=== PATIENT | female | born 1950 | race Caucasian/White ===

== ENCOUNTER → 2020-01-28 | Outpatient (CLI) | payer MEDICARE, OTHER ==
[~2020-01-28] MED LIST: LOPRESSOR25 MG PO; PLAVIX75 MG PO; PRINIVIL20 MG PO; ZOCOR40 MG PO
--- NOTE | 2020-01-28 12:33 | Diagnostic Imaging Report ---
EXAM: ABDOMEN-1VIEW (KUB) DATE: 01/28/2020 10:55 AM INDICATION: Urinary tract infection COMPARISON: None FINDINGS: Bowel gas pattern is nonobstructive. Bowel gas partially obscures renal shadows limiting evaluation. No radiographically evident renal calculi are appreciated. No abnormal intra-abdominal calcification is identified. There are degenerative changes of the lumbosacral spine. No acute osseous abnormalities identified. IMPRESSION: No acute radiographic abnormality identified within the abdomen. Signed by: Dr. Óscar Clark MD on 01/28/2020 12:30 PM
--- NOTE | 2020-01-28 12:36 | Diagnostic Imaging Report ---
EXAM: US RENAL RETROPERITONEAL COMP DATE: 01/28/2020 11:08 AM INDICATION: UTI COMPARISON: None FINDINGS: The right kidney is normal in size measuring 10.7 x 4.3 x 4.6 cm with cortical thickness of 1.7 cm. Cortical echogenicity is within normal limits. A suspected extrarenal pelvis is noted on the right. There is no evidence for true intrarenal hydronephrosis. No solid renal mass or shadowing calculi is appreciated. The left kidney is normal in size measuring 10.2 x 4.9 x 4.1 cm with cortical thickness of 2.0 cm. Cortical echogenicity is within normal limits. There is no evidence for solid renal mass, hydronephrosis, or shadowing calculi. The urinary bladder demonstrates no significant abnormalities. Bilateral ureteral jets are visualized. Prevoid volume is 216 cc. IMPRESSION: Suspected extrarenal pelvis noted on the right. Otherwise, unremarkable sonographic appearance of the kidneys. Signed by: Dr. Óscar lCark MD on 01/28/2020 12:33 PM
== END ==
LOC: US 10:40
PROVIDERS: ATTEND Urology
DX: N39.0 Urinary tract infection, site not specified (principal)
CPT/HCPCS: 74018; 76770

== ENCOUNTER 2021-06-03 13:20 | Emergency (ER) | payer MEDICARE, OTHER ==
[~2021-06-03] VITALS: Ht 170.2 cm; Wt 61.2 kg
[2021-06-03] MEDS ORDERED: KETOROLAC TROMETHAMINE 30 MG/ML VIAL IV STA (13:40)
[2021-06-03 14:24] LABS: BASOPHILS # (AUTO) 0.1 (0.0-0.1); BASOPHILS % 0.3 % (0.0-1.0); EOSINOPHILS # (AUTO) 0.1 (0.0-0.4); EOSINOPHILS % 0.5 % (0.0-6.0); HEMATOCRIT 44.8 % (34.2-44.1); HEMOGLOBIN 14.5 g/dL (12.0-16.0); LYMPHOCYTES # (AUTO) 7.5 (1.0-3.2); LYMPHOCYTES % 34.4 % (18.0-39.1); MEAN CORPUSCULAR HEMOGLOBIN 31.5 pg (28-32); MEAN CORPUSCULAR HGB CONC 32.4 g/dL (31-35); MEAN CORPUSCULAR VOLUME 97.2 fL (81-99); MONOCYTES # (AUTO) 1.1 (0.2-0.8); NEUTROPHILS % 59.2 % (38.7-80.0); PLATELET COUNT 227 x10e3/uL (140-360); RED BLOOD COUNT 4.61 x10e6/uL (3.6-5.1); RED CELL DISTRIBUTION WIDTH 13.2 % (11.7-14.4)
[2021-06-03 14:27] LABS: CLARITY,URINE CLOUDY (CLEAR); COLOR,URINE YELLOW (YELLOW); KETONES,URINE NEGATIVE (NEGATIVE); LEUKOCYTE ESTERASE ,URINE LARGE (NEGATIVE); NITRITE,URINE POSITIVE (NEGATIVE); PROTEIN,URINE DIPSTICK >=300 (NEGATIVE); URINE UROBILINOGEN 0.2 mg/dL (0.2 - 1)
[2021-06-03 14:43] LABS: ALBUMIN 4.1 g/dL (3.5-5.0); ALBUMIN/GLOBULIN RATIO 1.5 (0.8-2.0); ANION GAP 13.8 mmol/L (8-16); CALCIUM 9.3 mg/dL (8.4-10.2); CREATININE, SERUM 0.8 mg/dL (0.57-1.11); POTASSIUM 3.8 mmol/L (3.5-5.1)
[2021-06-03 14:45] LABS: BACTERIA,URINE MANY /HPF
[2021-06-03] MEDS ORDERED: KEFLEX125 MG/5 M PO (15:33)
[2021-06-03 15:35] VITALS: BP 104/70
[2021-06-03] MEDS ORDERED: CEPHALEXIN 500 MG CAP PO ONE (16:00)
== END 2021-06-03 15:42 | disposition home or self-care (01) ==
LOC: ER 13:30
DX: N39.0 Urinary tract infection, site not specified (principal); R10.9 Unspecified abdominal pain; I10 Essential (primary) hypertension; E78.00 Pure hypercholesterolemia, unspecified
CPT/HCPCS: 36415; 74176; 80053; 81001; 85025; 87086; 87186; 99283; J1885

== ENCOUNTER → 2021-06-05 | Outpatient (CLI) | payer MEDICARE, OTHER ==
[~2021-06-05] MED LIST changes: +KEFLEX125 MG/5 M PO
== END ==
LOC: MRI 08:21
PROVIDERS: ATTEND Internal Medicine
DX: H81.4 Vertigo of central origin (principal)
CPT/HCPCS: 70551

== ENCOUNTER → 2021-09-15 | Outpatient (CLI) | payer MEDICARE, OTHER | LOC: MAMMO 09:17 | PROVIDERS: ATTEND Internal Medicine Hematology & Oncology | DX: Z12.31 Encounter for screening mammogram for malignant neoplasm of breast (principal) | CPT/HCPCS: 77067 ==